=== PATIENT | male | born 1980 | race Caucasian/White ===

== ENCOUNTER 2016-12-07 14:21 | Emergency (ER) | payer SELFPAY ==
[~2016-12-07] VITALS: Ht 185.4 cm; Wt 81.8 kg
[2016-12-07 14:22] VITALS: BP 124/75; PULSE 76; RESP 15; O2SAT 99
--- NOTE | 2016-12-07 14:57 | ED.REPORT ---
HPI-General Illness Date of Service Dec 07, 2016 ED Provider: Isac Donis MD Pt is a healthy 36 year old male with a history of hypoglycemia who presents to the ED with concerns for multiple syncopal episodes in the last week. He reports that the first episode occurred when he stood up quickly, he fell ack and hit his head on the cabinet. The most previous episode occurred while he was driving home from [facility]. He reports that he could feel the episode coming on, reporting blurred vision and general "feeling off", he pulled over on the side of the road so that his could drive. He denies any trauma to his head, low blood sugar or any other symptoms. Nursing Notes Stated Complaint: PASSING OUT Chief Complaint: General Complaint Nursing Notes Reviewed: Yes Allergies: Coded Allergies: No Known Allergies (Unverified , 12/07/16) No Active Prescriptions or Reported Meds General Time Seen by MD: 14:42 Chief Complaint Other (Syncope) Hx Obtained From: Patient, Spouse Arrived By: Walk-in Sudden in Onset?: Yes Onset Occurred: Yesterday Severity: Current: No pain currently Severity: Maximum: No pain Similar Sx Previous: Yes Past Medical History Past Medical History Hypoglycemia Review of Systems Full Review of Systems Constitutional: Denies: Chills, Fever, Malaise, Weakness - generalized Respiratory: Denies: Non-productive cough, Shortness of breath, Wheezing Cardiovascular: Reports: Syncope, Denies: Chest pain GI: Denies: Abdominal pain, Nausea, Vomiting Musculoskeletal: Reports: Neck pain, Denies: Back pain Skin: Denies Bruising Neurologic: Reports: Dizziness, Syncope, Denies: Change LOC, Headache, Weakness Complete sys rev & neg: except as marked. Physical Exam Vital Signs Vital Signs Date Time Temp Pulse Resp B/P Pulse Ox O2 Delivery O2 Flow Rate FiO2 12/07/16 17:09 36.8 72 119/78 100 Room Air 12/07/16 15:58 81 120/78 99 Room Air 12/07/16 15:58 62 111/64 97 Room Air 12/07/16 15:58 71 110/75 98 Room Air 12/07/16 14:22 36.3 76 15 124/75 99 Room Air Initial VS: Reviewed General/Constitutional: Well-developed, Well-nourished Head / Eyes: Atraumatic, Normocephalic, PERRL ENT: Mucous membranes moist, Conjunctiva normal, No scleral icterus Respiratory: Breath sounds normal, Clear to auscultation, No respiratory distress Cardiovascular: Regular rate & rhythm, Heart sounds normal, Intact distal pulses Abdomen / GI: Soft, Non-tender, No guarding, No rebound, No distention Skin: Warm, Dry, No cyanosis Neck: Atraumatic, Supple Neurologic: Oriented X3, Speech NL, No motor deficits, No sensory deficits, CN II - XII intact, Reflexes equal bilat Strength 5/5 in all 4 extremities NIH - 0 Interpretation & Diagnostics Lab Results Interpretation Result Diagram: 12/07/16 1554 12/07/16 1554 Test 12/07/16 15:54 White Blood Count 10.6th/mm3 (3.8-10.1) Red Blood Count 4.90mil/mm3 (4.40-5.80) Hemoglobin 14.1g/dL (13.8-17.2) Hematocrit 42.0% (41.0-50.0) Mean Corpuscular Volume 85.7fL (81-100) Mean Corpuscular Hemoglobin 28.8pg (27.0-35.0) Mean Corpuscular Hemoglobin Concent 33.6% (32.0-37.0) Red Cell Distribution Width 12.7% (12.3-15.4) Platelet Count 252bil/L (150-400) Neutrophils (%) (Auto) 69.6% (40-74) Lymphocytes (%) (Auto) 15.2% (14-46) Monocytes (%) (Auto) 7.2% (4-12) Eosinophils (%) (Auto) 7.2% (0-5) Basophils (%) (Auto) 0.6% (0-3) Sodium Level 140mEq/L (134-144) Potassium Level 4.3mEq/L (3.5-5.2) Chloride Level 102mEq/L (97-108) Carbon Dioxide Level 25mmol/L (18-29) Blood Urea Nitrogen 15mg/dL (6-20) Creatinine 0.94mg/dL (0.76-1.27) Estimat Glomerular Filtration Rate 97mL/min (>59) Glucose Level 93mg/dL (60-99) Calcium Level 9.2mg/dL (8.5-10.1) Total Bilirubin 0.3mg/dL (0.0-1.2) Aspartate Amino Transf (AST/SGOT) 14U/L (0-50) Alanine Aminotransferase (ALT/SGPT) 16U/L (0-44) Alkaline Phosphatase 64U/L (25-150) Troponin T < 0.010ug/L (0.0-0.011) Total Protein 6.4g/dL (6.4-8.4) Albumin 3.7g/dL (3.4-5.0) Hold Jefferson Top Tube Received (Received) ECG Interpretation ECG Interpretation: SR - 65 Early repolarization No STT chagnes No previous available for comparison Time: 14:40 Interpreted by: ED physician CT Head Interpretation IMPRESSION: No acute intracranial process Dictated by: Edd Coyne M.D. on 12/07/2016 at 15:57 Interpretation / Wet Read by: Interpret - Radiologist CT C-Spine Interpretation IMPRESSION: No fracture Dictated by: Edd Coyne M.D. on 12/07/2016 at 15:55 Interpretation / Wet Read by: Discussed w radiologist Re-Eval/Medical Decision Med Decision/Clinical Course 36-year-old male with multiple syncopal events over the previous weeks. One episode this morning one several weeks ago. Episode included feeling dizzy then syncopal event. Possible right upper extremity twitching. Cannot rule out seizure. No cardiac prodrome. CT head no acute pathology. Labs are unremarkable. EKG no acute changes. Unclear etiology patient does not want to be admitted to the hospital and requested to go home. He will follow up with primary doctor. May warrant neurology referral and further workup. Return precautions given. Source of Hx: Old records Time of Eval: 15:52 Re-Evaluation/Progress Note: Pt is rechecked and informed of his diagnosis and the plan to discharge him at this time, he understands and agrees. All questions are addressed. Counseled Regarding: Diagnosis, Lab results, When/why to return to ED Discharge & Departure Primary Impression: Syncope Syncope type: unspecified Qualified Code: R55 - Syncope and collapse Disposition: Home Discharge Condition All VS Reviewed: Yes Condition: Stable Patient Instructions: Syncope (ED) Additional Instructions: All of your labs and imaging results were reassuring today. You have decided to leave the emergency department today. It is unclear the exact etiology of your symptoms. I recommend that you take ibuprofen to control your neck pain and follow up with your primary care provider for further evaluation and possible referral to a neurologist. Return to the emergency department with any worsening or concerning symptoms. Referrals: [facility] Attestation Portions of this note were transcribed by Carin Triplett. I, Dr. Donis personally performed the history, physical exam and medical decision-making; I reviewed and confirmed the accuracy of the information in the transcribed note. Signed by: Indira Enriquez, 12/07/2016 16:49 copies to: [facility] Isac Donis MD Dec 07, 2016 14:57 RAFAT TRIPLETT Dec 07, 2016 15:04
[2016-12-07 15:58] VITALS: BP_SYST 110; BP_SYST 111; BP_SYST 120; BP_DIAS 64; BP_DIAS 75; BP_DIAS 78; PULSE 62; PULSE 71; PULSE 81; O2SAT 97; O2SAT 98; O2SAT 99
--- NOTE | 2016-12-07 15:59 | DRSVH ---
PROCEDURE: CT CERVICAL SPINE WITHOUT CONTRAST ([id number]) INDICATIONS: syncope TECHNIQUE: Noncontrast 3 mm thick sections acquired from the skull base to the T4 level. Sagittal and coronal r eformats were then constructed. For radiation dose reduction, the following was used: automated exp osure control, adjustment of mA and/or kV according to patient size. COMPARISON: None. FINDINGS: Image quality: Excellent. Bones: No fractures or dislocations. Visualized superior ribs are intact. Loss of the normal cervi scarlett lordosis. Minimal endplate spurring. Soft tissues: Prevertebral soft tissues are normal in thickness. No paravertebral hematomas. No ap ical pneumothoraces. IMPRESSION: No fracture Dictated by: Edd Coyne M.D. on 12/07/2016 at 15:55 Approved by: Edd Coyne M.D. on 12/07/2016 at 15:57
[2016-12-07 16:02] LABS: BASOPHILS % (AUTO) 0.6 % (0-3); EOSINOPHILS % (AUTO) 7.2 % (0-5); MONOCYTES % (AUTO) 7.2 % (4-12); Mean Corpuscular Hemoglobin 28.8 pg (27.0-35.0); Mean Corpuscular Volume 85.7 fL (81-100); NEUTROPHILS % (AUTO) 69.6 % (40-74); Platelet Count 252 bil/L (150-400)
--- NOTE | 2016-12-07 16:03 | DRSVH ---
PROCEDURE: CT BRAIN WITHOUT CONTRAST ([id number]) INDICATIONS: syncope TECHNIQUE: Noncontrast 4.5 mm thick angled axial sections acquired from the foramen magnum to the vertex, with c oronal reformats. COMPARISON: None. FINDINGS: Image quality: Excellent. CSF spaces: Basal cisterns are patent. No extra-axial fluid collections. Ventricles are normal in size and shape. Brain: No midline shift. No intracranial masses or hemorrhage. Calderon-white matter interface is norm al. Skull and face: Calvarium and visualized facial bones are intact, without suspicious lesions. Sinuses: Mild right maxillary sinus disease. Partial opacification of the ethmoid air cells, bilater ally. IMPRESSION: No acute intracranial process Dictated by: Edd Coyne M.D. on 12/07/2016 at 15:57 Approved by: Edd Coyne M.D. on 12/07/2016 at 16:01
--- NOTE | 2016-12-07 16:10 | DRSVH ---
PROCEDURE: X-RAY CHEST ONE VIEW, PORTABLE ([id number]) INDICATIONS: syncope TECHNIQUE: One view of the chest was acquired. COMPARISON: None. FINDINGS: Surgical changes and devices: None. Lungs and pleura: No pleural effusions or pneumothorax. Lungs are clear. Mediastinum: Mediastinal contours appear normal. Heart size is normal. Bones and chest wall: No suspicious bony lesions. Overlying soft tissues appear unremarkable. IMPRESSION: No acute disease Dictated by: Edd Coyne M.D. on 12/07/2016 at 16:04 Approved by: Edd Coyne M.D. on 12/07/2016 at 16:08
[2016-12-07 16:36] LABS: TROPONIN T < 0.010 ug/L (0.0-0.011)
[2016-12-07 17:09] VITALS: BP 119/78; PULSE 72; O2SAT 100
== END 2016-12-07 17:11 | disposition home or self-care (01) ==
LOC: SED 14:21
DX: R55 Syncope and collapse (principal); W18.00XA Striking against unspecified object with subsequent fall, initial encounter; Y93.89 Activity, other specified; Y92.89 Other specified places as the place of occurrence of the external cause; Y99.8 Other external cause status; E16.2 Hypoglycemia, unspecified